=== PATIENT | female | born 1930 | race Hispanic/Latino ===

== ENCOUNTER 2018-03-07 10:51 | Emergency (ER) | payer MEDICARE ==
[2018-03-07] MEDS ORDERED: TYLENOL PO ONE (11:33)
[2018-03-07] MEDS ORDERED: XYLOCAINE 1% 20 mL INFILTRATI ONE (11:35)
[2018-03-07] MEDS ORDERED: XYLOCAINE 1%/ EPI 1:100,000 INFILTRATI ONE (11:35)
[2018-03-07] MEDS ORDERED: BOOSTRIX IM ONE (11:39)
--- NOTE | 2018-03-07 11:40 | Emergency Department Report ---
<ARELY TIM A - Last Filed: 03/07/18 13:59> ED Altered Mental Status HPI - General Chief Complaint: Fall Stated Complaint: LAC TO ARM/ FALL Time Seen by Provider: 03/07/18 11:24 - Related Data Home Medications Medication Instructions Recorded Confirmed Last Taken Glimepiride 2 mg PO DAILY 12/30/14 02/03/18 1 Day Ago ~02/02/18 Aspirin [Aspirin BABY CHEW TAB] 81 mg PO QDAY 01/27/16 02/03/18 1 Day Ago ~02/02/18 Lovastatin [Altoprev] 40 mg PO QPM 01/27/16 02/03/18 1 Day Ago ~02/02/18 Niacin (Nf) 250 mg PO QHS 01/27/16 02/03/18 1 Day Ago ~02/02/18 Omeprazole [PriLOSEC] 20 mg PO QDAY 01/27/16 02/03/18 1 Day Ago ~02/02/18 Previous Rx's Medication Instructions Recorded Last Taken Type Clopidogrel Bisulfate [Plavix] 75 mg PO DAILY #30 tablet 12/30/14 1 Day Ago Rx ~02/02/18 Acetaminophen [Acetaminophen TAB] 325 mg PO Q4H PRN #30 tablet 02/07/18 Unknown Rx Famotidine [Pepcid] 10 mg PO BID #60 tablet 02/07/18 Unknown Rx Levothyroxine [Synthroid] 25 mcg PO QAM #30 02/07/18 1 Day Ago Rx ~02/02/18 Metoprolol [Lopressor TAB] 50 mg PO BID #60 02/07/18 1 Day Ago Rx ~02/02/18 Zolpidem [Ambien] 5 mg PO QHS PRN #15 tablet 02/07/18 Unknown Rx amLODIPine [Norvasc] 5 mg PO QDAY #30 02/07/18 1 Day Ago Rx ~02/02/18 oxyCODONE /ACETAMINOPHEN [Percocet 1 tab PO Q6H PRN #5 day 02/07/18 Unknown Rx 5/325 mg] Nitrofurantoin Monohyd/M-Cryst 100 mg PO BID #14 capsule 03/07/18 Unknown Rx [Macrobid 100 mg Capsule] Allergies Allergy/AdvReac Type Severity Reaction Status Date / Time ibuprofen [From Motrin] Allergy Nausea Verified 12/28/14 11:57 ED Review of Systems ROS: Stated complaint: LAC TO ARM/ FALL Other details as noted in HPI ED Past Medical Hx - Medications Home Medications: Home Medications Medication Instructions Recorded Confirmed Last Taken Type Clopidogrel Bisulfate [Plavix] 75 mg PO DAILY #30 tablet 12/30/14 02/03/18 1 Day Ago Rx ~02/02/18 Glimepiride 2 mg PO DAILY 12/30/14 02/03/18 1 Day Ago History ~02/02/18 Aspirin [Aspirin BABY CHEW TAB] 81 mg PO QDAY 01/27/16 02/03/18 1 Day Ago History ~02/02/18 Lovastatin [Altoprev] 40 mg PO QPM 01/27/16 02/03/18 1 Day Ago History ~02/02/18 Niacin (Nf) 250 mg PO QHS 01/27/16 02/03/18 1 Day Ago History ~02/02/18 Omeprazole [PriLOSEC] 20 mg PO QDAY 01/27/16 02/03/18 1 Day Ago History ~02/02/18 Acetaminophen [Acetaminophen TAB] 325 mg PO Q4H PRN #30 tablet 02/07/18 Unknown Rx Famotidine [Pepcid] 10 mg PO BID #60 tablet 02/07/18 Unknown Rx Levothyroxine [Synthroid] 25 mcg PO QAM #30 02/07/18 02/03/18 1 Day Ago Rx ~02/02/18 Metoprolol [Lopressor TAB] 50 mg PO BID #60 02/07/18 02/03/18 1 Day Ago Rx ~02/02/18 Zolpidem [Ambien] 5 mg PO QHS PRN #15 tablet 02/07/18 Unknown Rx amLODIPine [Norvasc] 5 mg PO QDAY #30 02/07/18 02/03/18 1 Day Ago Rx ~02/02/18 oxyCODONE /ACETAMINOPHEN [Percocet 1 tab PO Q6H PRN #5 day 02/07/18 Unknown Rx 5/325 mg] Nitrofurantoin Monohyd/M-Cryst 100 mg PO BID #14 capsule 03/07/18 Unknown Rx [Macrobid 100 mg Capsule] ED Course Vital Signs 03/07/18 11:12 Temperature 99.1 F Pulse Rate 86 Respiratory 18 Rate Blood Pressure 116/37 O2 Sat by Pulse 100 Oximetry - Laceration /Wound Repair Right Posterior Distal Finger Wound Location: upper extremity Wound Length (cm): 5 Wound's Depth, Shape: superficial, linear Wound Explored: no foreign body removed Irrigated w/ Saline (ccs): 200 Betadine Prep?: Yes Anesthesia: Lidocaine w/ Epi Volume Anesthetic (ccs): 6 Wound Repaired With: sutures, Dermabond Suture Size/Type: 3:0 Number of Sutures: 8 Layer Closure?: No Sterile Dressing Applied?: Yes Progress: The 5cm laceration wound was prepped and draped in sterile fashion. Anesthesia was achieved with 6mL of 1% lidocaine with Epi. The wound was irrigated with 200cc NS and explored. There were no foreign bodies The wound was reapproximated in 1 layer with 8 sutures suing with 3-0 vicryl absorbable sutures in the dermis with interrupted sutures percutaneously. There was excellent reapproximation of the wound edges. The patient tolerated the procedure without complication. Discussed acute wound care with family members who were present, son and daughter, - Lab Data Result diagrams: 03/07/18 12:34 03/07/18 12:29 Lab Results 03/07/18 03/07/18 03/07/18 Range/Units 11:36 12:29 12:34 WBC 9.0 (4.5-11.0) K/mm3 RBC 3.07 L (3.65-5.03) M/mm3 Hgb 9.6 L (10.1-14.3) gm/dl Hct 28.0 L (30.3-42.9) % MCV 91 (79-97) fl MCH 31 (28-32) pg MCHC 34 (30-34) % RDW 14.6 (13.2-15.2) % Plt Count 292 (140-440) K/mm3 Lymph % (Auto) 20.6 (13.4-35.0) % Baxter % (Auto) 4.4 (0.0-7.3) % Eos % (Auto) 0.5 (0.0-4.3) % Baso % (Auto) 0.3 (0.0-1.8) % Lymph # 1.9 (1.2-5.4) K/mm3 Baxter # 0.4 (0.0-0.8) K/mm3 Eos # 0.0 (0.0-0.4) K/mm3 Baso # 0.0 (0.0-0.1) K/mm3 Seg Neutrophils % 74.2 H (40.0-70.0) % Seg Neutrophils # 6.7 (1.8-7.7) K/mm3 Sodium 141 (137-145) mmol/L Potassium 4.4 (3.6-5.0) mmol/L Chloride 105.9 (98-107) mmol/L Carbon Dioxide 23 (22-30) mmol/L Anion Gap 17 mmol/L BUN 21 H (7-17) mg/dL Creatinine 1.4 H (0.7-1.2) mg/dL Estimated GFR 36 ml/min BUN/Creatinine Ratio 15 % Glucose 106 H (65-100) mg/dL POC Glucose 154 H (70-105) Calcium 9.0 (8.4-10.2) mg/dL Urine Color (Yellow) Urine Turbidity (Clear) Urine pH (5.0-7.0) Ur Specific [place] (1.003-1.030) Urine Protein (Negative) mg/dL Urine Glucose (UA) (Negative) mg/dL Urine Ketones (Negative) mg/dL Urine Blood (Negative) Urine Nitrite (Negative) Urine Bilirubin (Negative) Urine Urobilinogen (<2.0) mg/dL Ur Leukocyte Esterase (Negative) Urine WBC (Auto) (0.0-6.0) /HPF Urine RBC (Auto) (0.0-6.0) /HPF U Epithel Cells (Auto) (0-13.0) /HPF /16/18 Range/Units Unknown WBC (4.5-11.0) K/mm3 RBC (3.65-5.03) M/mm3 Hgb (10.1-14.3) gm/dl Hct (30.3-42.9) % MCV (79-97) fl MCH (28-32) pg MCHC (30-34) % RDW (13.2-15.2) % Plt Count (140-440) K/mm3 Lymph % (Auto) (13.4-35.0) % Baxter % (Auto) (0.0-7.3) % Eos % (Auto) (0.0-4.3) % Baso % (Auto) (0.0-1.8) % Lymph # (1.2-5.4) K/mm3 Baxter # (0.0-0.8) K/mm3 Eos # (0.0-0.4) K/mm3 Baso # (0.0-0.1) K/mm3 Seg Neutrophils % (40.0-70.0) % Seg Neutrophils # (1.8-7.7) K/mm3 Sodium (137-145) mmol/L Potassium (3.6-5.0) mmol/L Chloride (98-107) mmol/L Carbon Dioxide (22-30) mmol/L Anion Gap mmol/L BUN (7-17) mg/dL Creatinine (0.7-1.2) mg/dL Estimated GFR ml/min BUN/Creatinine Ratio % Glucose (65-100) mg/dL POC Glucose (70-105) Calcium (8.4-10.2) mg/dL Urine Color Yellow (Yellow) Urine Turbidity Clear (Clear) Urine pH 7.0 (5.0-7.0) Ur Specific [place] 1.011 (1.003-1.030) Urine Protein 100 mg/dl (Negative) mg/dL Urine Glucose (UA) Neg (Negative) mg/dL Urine Ketones Neg (Negative) mg/dL Urine Blood Sm (Negative) Urine Nitrite Neg (Negative) Urine Bilirubin Neg (Negative) Urine Urobilinogen < 2.0 (<2.0) mg/dL Ur Leukocyte Esterase Lg (Negative) Urine WBC (Auto) 156.0 H (0.0-6.0) /HPF Urine RBC (Auto) 5.0 (0.0-6.0) /HPF U Epithel Cells (Auto) 2.0 (0-13.0) /HPF Critical care attestation.: If time is entered above; I have spent that time in minutes in the direct care of this critically ill patient, excluding procedure time. ED Disposition Clinical Impression: Hypoglycemia, Non-insulin dependent type 2 diabetes mellitus, UTI (urinary tract infection), Laceration of right hand, Chronic renal insufficiency Disposition: TO HOME OR SELFCARE Condition: Stable Instructions: Laceration (ED), Urinary Tract Infection in Women (ED), Diabetic Hypoglycemia (ED) Additional Instructions: Monitor your blood sugar the rest of the day and eat appropriately. Check glucose and restart diabetes medication tomorrow prior to eating. Follow with the doctor within 2-3 days. Take antibiotics as prescribed and return if symptoms worsen as indicated by your discharge instructions. Your stitches need to be removed in 7-10 days. You may return here or follow up with her primary care doctor. Prescriptions: Nitrofurantoin Monohyd/M-Cryst [Macrobid 100 mg Capsule] 100 mg PO BID #14 capsule Referrals: PRIMARY CARE, [Primary Care Provider] - 2-3 Days <ADOLFO LEMOS - Last Filed: 03/07/18 15:47> ED Altered Mental Status HPI - General Source: patient, family Mode of arrival: Wheelchair Limitations: Other - History of Present Illness Initial Comments: 87 year old female with a past medical history of [id number] diabetes , GERD, CAD with stent, open-heart surgery, and previous DVT presents to the hospital complaints of mental status episode likely secondary to hypoglycemia and fall with injury to right thumb. Patient takes glimepiride a.m. for her diabetes. Last dose was yesterday morning. This morning patient was found after a fall slurring her words and confused. Family presumed glucose was low and gave her juice and candy. Once patient became more oriented/alert Accu- Chek was then checked and was 100. Prior to being found confused today she fell injuring her right thumb presents with laceration. Unsure if she hit her head he has an area of blood on her left right scalp is unknown if that was caused this injury or as a result of bleeding from the hand. Patient denies headache or neck pain and only complains of 4/10 pain to the right thumb. She is right-hand dominant. Prior to this episode family reports no physical or medical complaints. Patient is currently at her baseline and alert to self and place but states the year is 2020. Last tetanus status unkowwn. ED Past Medical Hx - Past Medical History Hx Hypertension: Yes (EF 55-60%) Hx Heart Attack/AMI: Yes (2010) Hx Diabetes: Yes Hx Deep Vein Thrombosis: Yes Hx GERD: Yes Hx Renal Disease: Yes (CKD) Hx Arthritis: Yes (HANDS) Hx Seizures: No Hx Asthma: No Additional medical history: Epistaxis secondary to antiplatelet agents - Surgical History Hx Coronary Stent: Yes (2010 2014) Hx Open Heart Surgery: Yes - Social History Smoking Status: Never Smoker Substance Use Type: None ED Physical Exam - General Limitations: Other - Other Other exam information: General: No limitations, patient is alert in no acute distress Head exam: Atraumatic, normocephalic Eyes exam: Normal appearance, pupils equal reactive to light, extraocular movements intact ENT: Moist mucous membrane, normal oropharynx Neck exam: Normal inspection, full range of motion, no meningismus nontender Respiratory exam: Clear to auscultation bilateral, no wheezes, rales, crackles Cardiovascular: Normal rate and rhythm, normal heart sounds Abdomen: Soft, nondistended, and nontender, with normal bowel sounds, no rebound, or guarding Extremity: Full range of motion. laceration of the dorsum right hand at the base of the thumb extending to the webspace approximately 5 cm. Back: Normal Inspection, full range of motion, no tenderness Neurologic: Alert, oriented x3, cranial nerves intact, no motor or sensory deficit Psychiatric: normal affect, normal mood Skin: Warm, dry, intact - Assessment Assessment Interval: Baseline - Level of Consciousness 1a. Level of Consciousness: alert - LOC Questions 1b. LOC Questions: answers correctly - LOC Command 1c. LOC Commands: performs tasks correctly - Best Gaze 2. Best Gaze: normal - Visual 3. Visual: no visual loss - Facial Palsy 4. Facial Palsy: normal symmetrical movement - Motor Arm 5b. Motor Arm Right: no drift 5a. Motor Arm Left: no drift - Motor Leg 6a. Motor Leg Left: no drift 6b. Motor Leg Right: no drift - Limb Ataxia 7. Limb Ataxia: absent - Sensory 8. Sensory: normal - Best Language 9. Best Language: no aphasia - Dysarthria 10. Dysarthria: normal - Extinction and Inattention 11. Extinction/Inattention: no abnormality - Scoring Total Score: 0 Stroke Severity: No Stroke Symptoms - Lab Data Result diagrams: 03/07/18 12:34 03/07/18 12:29 - Radiology Data Radiology results: report reviewed read by radiologist ct head: naf xr right hand: naf - Medical Decision Making Hypoglycemic episode Improved with oral intake prior to arrival Glucose stable and patient ate prior to discharge UTI Likely cause of hypoglycemic episode No signs of sepsis macrobid given and prescribed cultures pending Renal insufficiency Chronic and unchanged Anemia No reports of bleeding other than acute bleeding wound pt received tetanus - Differential Diagnosis infection, hypoglycemia, fracture, contusion, sprain Critical Care Time: No ED Disposition Is pt being admited?: No Does the pt Need Aspirin: No Time of Disposition: 15:37
--- NOTE | 2018-03-07 12:24 | Cat Scan Report ---
FINAL REPORT EXAM: CT HEAD/BRAIN WO CON HISTORY: ams, likley hypoglycemia ? head injury TECHNIQUE: CT examination of the head without IV contrast PRIORS: None. FINDINGS: No acute air-fluid level visualized in the included air-filled sinuses. Bone windows demonstrate no acute fracture. There is ventricular and sulcal prominence compatible with global cerebrocortical atrophy. The brain contains no mass, mass effect, hemorrhage, or acute infarct. There is no extra-axial intracranial bleed, brain bleed, or midline shift. IMPRESSION: No acute CVA, intracranial bleed, or brain mass
[2018-03-07 12:40] LABS: Basophils % (Auto) 0.3 % (0.0-1.8); Eosinophils % (Auto) 0.5 % (0.0-4.3); Hemoglobin 9.6 gm/dl (10.1-14.3); Lymphocytes # (Auto) 1.9 K/mm3 (1.2-5.4); Lymphocytes % (Auto) 20.6 % (13.4-35.0); Mean Corpuscular HGB Conc 34 % (30-34); Mean Corpuscular Hemoglobin 31 pg (28-32); Mean Corpuscular Volume 91 fl (79-97); Monocytes # (Auto) 0.4 K/mm3 (0.0-0.8); Monocytes % (Auto) 4.4 % (0.0-7.3); Platelet Count 292 K/mm3 (140-440); Red Blood Count 3.07 M/mm3 (3.65-5.03); Red Cell Distribution Width 14.6 % (13.2-15.2)
--- NOTE | 2018-03-07 12:56 | XRay Report ---
Right hand 3 views: History: Injury, this laceration. Findings: General osteopenia. No periosteal reaction or lytic lesion. No soft tissue calcification. Arthritic changes interphalangeal joints. Impression: No evidence of acute fracture.
[2018-03-07 14:51] LABS: Bilirubin,Urine NEG (Negative); Blood,Urine SM (Negative); Color,Urine Yellow (Yellow); Urobilinogen,Urine < 2.0 mg/dL (<2.0)
[2018-03-07] MEDS ORDERED: MACROBID ONE (15:16)
[2018-03-07] MEDS ORDERED: MACROBID PO ONE (15:17)
[2018-03-07 16:09] VITALS: BP 128/37
== END 2018-03-07 16:10 | disposition home or self-care (01) ==
LOC: ED 10:51
DX: S61.411A Laceration without foreign body of right hand, initial encounter (principal); E11.649 Type 2 diabetes mellitus with hypoglycemia without coma; N39.0 Urinary tract infection, site not specified; I13.0 Hypertensive heart and chronic kidney disease with heart failure and stage 1 through stage 4 chronic kidney disease, or unspecified chronic kidney disease; E11.22 Type 2 diabetes mellitus with diabetic chronic kidney disease; N18.9 Chronic kidney disease, unspecified; K21.9 Gastro-esophageal reflux disease without esophagitis; Z86.718 Personal history of other venous thrombosis and embolism; Z79.82 Long term (current) use of aspirin; W17.89XA Other fall from one level to another, initial encounter; Y93.89 Activity, other specified; Y92.89 Other specified places as the place of occurrence of the external cause; Y99.8 Other external cause status
CPT/HCPCS: 36415; 70450; 80048; 81001; 82962; 85025; 87086; 90471; 90715

== ENCOUNTER 2018-03-15 09:59 | Outpatient (CLI) | payer MEDICARE ==
--- NOTE | 2018-03-16 01:47 | XRay Report ---
FINAL REPORT EXAM: XR HIP 2-3V RT HISTORY: PAIN IN RIGHT HIP TECHNIQUE: An AP view of the pelvis was obtained along with a frogleg view of the right hip. Comparison is made to the postoperative study of 02/06/2018. FINDINGS: The patient is status post total right hip arthroplasty. There is no evidence of heart complication or fracture. There is generalized osteoporosis. The bony pelvic ring appears intact the left hip joint reveals minimal arthritic changes. The SI joints appear normal. The soft tissues reveal vascular calcifications along with surgical clips in the right inguinal area. IMPRESSION: Status post total right hip arthroplasty. No evidence of hardware complication or fracture.
== END 2018-03-15 10:00 | disposition home or self-care (01) ==
LOC: XRAY 09:59
PROVIDERS: ATTEND Orthopaedic Surgery
DX: M81.0 Age-related osteoporosis without current pathological fracture (principal); M25.851 Other specified joint disorders, right hip; Z96.641 Presence of right artificial hip joint; I11.0 Hypertensive heart disease with heart failure; I50.9 Heart failure, unspecified; E78.00 Pure hypercholesterolemia, unspecified; K21.9 Gastro-esophageal reflux disease without esophagitis; E03.9 Hypothyroidism, unspecified; E11.9 Type 2 diabetes mellitus without complications; E78.5 Hyperlipidemia, unspecified

== ENCOUNTER 2020-06-26 16:04 | Emergency (ER) | payer MEDICARE ==
[2020-06-26] MEDS ORDERED: MORPHINE 2 MG/1 ML INJ IV ONE ×2 (16:27→22:50)
[2020-06-26 16:46] LABS: Basophils # (Auto) 0.1 K/mm3 (0.0-0.1); Basophils % (Auto) 0.5 % (0.0-1.8); Eosinophils % (Auto) 0.5 % (0.0-4.3); Hematocrit 26.5 % (30.3-42.9); Hemoglobin 8.7 gm/dl (10.1-14.3); Lymphocytes # (Auto) 2.9 K/mm3 (1.2-5.4); Lymphocytes % (Auto) 30.5 % (13.4-35.0); Mean Corpuscular HGB Conc 33 % (30-34); Mean Corpuscular Volume 97 fl (79-97); Monocytes # (Auto) 0.4 K/mm3 (0.0-0.8); Monocytes % (Auto) 4.6 % (0.0-7.3); Platelet Count 288 K/mm3 (140-440); Red Blood Count 2.74 M/mm3 (3.65-5.03); Red Cell Distribution Width 15.7 % (13.2-15.2)
--- NOTE | 2020-06-26 16:54 | Emergency Department Report ---
ED Fall HPI - General Chief Complaint: Fall Stated Complaint: R HIP PAIN Time Seen by Provider: 06/26/20 16:14 Source: patient, EMS Mode of arrival: Stretcher - History of Present Illness Initial Comments: Patient is a 89-year-old female who has history of htn, cad s/p cabg, hypothyroidism, ckd 3, oa, dvt and gerd who presented with mechanical fall resulting in right hip pain. Patient states she also struck the back of her head and has a mild headache. She denies loss of consciousness. Patient has a history of total hip arthroplasty in 2018. Patient is having pain with movement of the right hip. She denies any other injuries at this time. - Related Data Home Medications Medication Instructions Recorded Confirmed Last Taken Glimepiride 2 mg PO DAILY 12/30/14 02/03/18 1 Day Ago ~02/02/18 Aspirin [Aspirin BABY CHEW TAB] 81 mg PO QDAY 01/27/16 02/03/18 1 Day Ago ~02/02/18 Lovastatin [Altoprev] 40 mg PO QPM 01/27/16 02/03/18 1 Day Ago ~02/02/18 Niacin (Nf) 250 mg PO QHS 01/27/16 02/03/18 1 Day Ago ~02/02/18 Omeprazole [PriLOSEC] 20 mg PO QDAY 01/27/16 02/03/18 1 Day Ago ~02/02/18 Previous Rx's Medication Instructions Recorded Last Taken Type Clopidogrel Bisulfate [Plavix] 75 mg PO DAILY #30 tablet 12/30/14 1 Day Ago Rx ~02/02/18 Acetaminophen [Acetaminophen TAB] 325 mg PO Q4H PRN #30 tablet 02/07/18 Unknown Rx Famotidine [Pepcid] 10 mg PO BID #60 tablet 02/07/18 Unknown Rx Levothyroxine [Synthroid] 25 mcg PO QAM #30 02/07/18 1 Day Ago Rx ~02/02/18 Metoprolol [Lopressor TAB] 50 mg PO BID #60 02/07/18 1 Day Ago Rx ~02/02/18 Zolpidem [Ambien] 5 mg PO QHS PRN #15 tablet 02/07/18 Unknown Rx amLODIPine 5 mg PO QDAY #30 02/07/18 1 Day Ago Rx ~02/02/18 oxyCODONE /ACETAMINOPHEN [Percocet 1 tab PO Q6H PRN #5 day 02/07/18 Unknown Rx 5/325 mg] Nitrofurantoin Monohyd/M-Cryst 100 mg PO BID #14 capsule 03/07/18 Unknown Rx [Macrobid 100 mg Capsule] Allergies Allergy/AdvReac Type Severity Reaction Status Date / Time ibuprofen [From Motrin] Allergy Nausea Verified 12/28/14 11:57 ED Review of Systems ROS: Stated complaint: R HIP PAIN Other details as noted in HPI Comment: All other systems reviewed and negative ED Past Medical Hx - Past Medical History Previous Medical History?: Yes Hx Hypertension: Yes (EF 55-60%) Hx Heart Attack/AMI: Yes (2010) Hx Diabetes: Yes Hx Deep Vein Thrombosis: Yes Hx GERD: Yes Hx Renal Disease: Yes (CKD) Hx Arthritis: Yes () Hx Seizures: No Hx Asthma: No Additional medical history: Epistaxis secondary to antiplatelet agents - Surgical History Past Surgical History?: Yes Hx Coronary Stent: Yes (2010 2014) Hx Open Heart Surgery: Yes Additional Surgical History: right hip surgery - Social History Smoking Status: Never Smoker Substance Use Type: None - Medications Home Medications: Home Medications Medication Instructions Recorded Confirmed Last Taken Type Clopidogrel Bisulfate [Plavix] 75 mg PO DAILY #30 tablet 12/30/14 02/03/18 1 Day Ago Rx ~02/02/18 Glimepiride 2 mg PO DAILY 12/30/14 02/03/18 1 Day Ago History ~02/02/18 Aspirin [Aspirin BABY CHEW TAB] 81 mg PO QDAY 01/27/16 02/03/18 1 Day Ago History ~02/02/18 Lovastatin [Altoprev] 40 mg PO QPM 01/27/16 02/03/18 1 Day Ago History ~02/02/18 Niacin (Nf) 250 mg PO QHS 01/27/16 02/03/18 1 Day Ago History ~02/02/18 Omeprazole [PriLOSEC] 20 mg PO QDAY 01/27/16 02/03/18 1 Day Ago History ~02/02/18 Acetaminophen [Acetaminophen TAB] 325 mg PO Q4H PRN #30 tablet 02/07/18 Unknown Rx Famotidine [Pepcid] 10 mg PO BID #60 tablet 02/07/18 Unknown Rx Levothyroxine [Synthroid] 25 mcg PO QAM #30 02/07/18 02/03/18 1 Day Ago Rx ~02/02/18 Metoprolol [Lopressor TAB] 50 mg PO BID #60 02/07/18 02/03/18 1 Day Ago Rx ~02/02/18 Zolpidem [Ambien] 5 mg PO QHS PRN #15 tablet 02/07/18 Unknown Rx amLODIPine 5 mg PO QDAY #30 02/07/18 02/03/18 1 Day Ago Rx ~02/02/18 oxyCODONE /ACETAMINOPHEN [Percocet 1 tab PO Q6H PRN #5 day 02/07/18 Unknown Rx 5/325 mg] Nitrofurantoin Monohyd/M-Cryst 100 mg PO BID #14 capsule 03/07/18 Unknown Rx [Macrobid 100 mg Capsule] ED Physical Exam - General Limitations: No Limitations General appearance: alert, in no apparent distress - Head Head exam: Present: atraumatic, normocephalic - Eye Eye exam: Present: normal appearance, PERRL, EOMI - ENT ENT exam: Present: normal orophraynx, mucous membranes moist - Neck Neck exam: Present: normal inspection - Respiratory Respiratory exam: Present: normal lung sounds bilaterally. Absent: respiratory distress, wheezes, rales - Cardiovascular Cardiovascular Exam: Present: regular rate, normal rhythm, normal heart sounds. Absent: systolic murmur, diastolic murmur, rubs, gallop - GI/Abdominal GI/Abdominal exam: Present: soft, normal bowel sounds. Absent: distended, tenderness, guarding, rebound, rigid - Extremities Exam Extremities exam: Present: normal inspection - Expanded Lower Extremity Exam Right Hip exam: Present: tenderness. Absent: external rotation, internal rotation, shortening Upper Leg exam: Present: normal inspection Knee exam: Present: normal inspection Lower Leg exam: Present: normal inspection Neuro vascular tendon exam: Present: no vascular compromise - Back Exam Back exam: Present: normal inspection - Neurological Exam Neurological exam: Present: alert, oriented X3 - Psychiatric Psychiatric exam: Present: normal affect, normal mood - Skin Skin exam: Present: warm, dry, intact, normal color. Absent: rash ED Course Vital Signs 06/26/20 16:22 Temperature 98.9 F Pulse Rate 67 Respiratory 20 Rate Blood Pressure 149/48 [Right] O2 Sat by Pulse 97 Oximetry ED Medical Decision Making - Lab Data Result diagrams: 06/26/20 16:32 06/26/20 16:32 - Radiology Data CT cervical spine wo con INDICATION / CLINICAL INFORMATION: 89 years Female; pain from injury. TECHNIQUE: Axial CT images of the cervical spine were obtained. Sagittal and coronal reformatted images were produced. All CT scans at this location are performed using CT dose reduction for ALARA by means of automated exposure control. COMPARISON: None available. FINDINGS: POST-SURGICAL CHANGES: Anterior fusion hardware seen from C5 through C7. Interbody strut graft is seen at C6. ALIGNMENT: Normal cervical lordosis seen without significant scoliosis. VERTEBRAE: No signs of fracture. Vertebral bodies are grossly normal in height throughout. There is osseous foraminal narrowing on the right at C3-4 and C4-5 from uncinate and facet hypertrophy. Significant findings are seen on the left at C3-4 and C4-5, as well is C2-3. INTRAVERTEBRAL DISCS: Small posterocentral disc protrusion seen at C4-5. Mild disc disease and posterior ligamentum flavum hypertrophy seen at C3-4. Overall, no significant canal stenosis is appreciated. PARASPINAL SOFT TISSUES: No significant abnormality. ADDITIONAL FINDINGS: Scarring type changes seen in the lung apices. Atherosclerotic disease is seen in the carotid bifurcation region on the left. IMPRESSION: 1. No signs of acute bony trauma to the cervical spine. Signer Name: Hugo Griffin MD, III Signed: 06/26/2020 5:40 PM Workstation Name: [id number] CT head/brain wo con INDICATION / CLINICAL INFORMATION: 89 years Female; fall injury. TECHNIQUE: Routine CT head without contrast. All CT scans at this location are performed using CT dose reduction for ALARA by means of automated exposure control. COMPARISON: 03/07/2018 FINDINGS: BRAIN / INTRACRANIAL CONTENTS: No acute hemorrhage, mass effect, midline shift, hydrocephalus, or acute, large territorial infarct. Mild to moderate, diffuse cerebral and cerebellar atrophy. Moderate degree of hippocampal atrophy suggested bilaterally. There are [id number], confluent areas of decreased attenuation in the white matter of the cerebral hemispheres. These are nonspecific findings and may be related to microangiopathy (hypertension, diabetes, atherosclerosis), given the patient's age. It might be difficult to evaluate for small areas of ischemia without diffusion imaging by MRI. CRANIOCERVICAL JUNCTION: No significant abnormality. ORBITS: No significant abnormality of visualized orbits. SINUSES / MASTOIDS: No significant abnormality in the visualized paranasal sinuses or mastoid air cells. ADDITIONAL FINDINGS: Atherosclerotic disease is seen in the anterior and posterior circulation. IMPRESSION: 1. No focal mass, hemorrhage, hydrocephalus, or acute, large territorial infarct. Signer Name: Hugo Griffin MD, III Signed: 06/26/2020 5:36 PM Workstation Name: [id number] lower extremity RT wo con INDICATION: fall injury, hip injury. TECHNIQUE: All CT scans at this location are performed using the following dose modulation technique: Automated exposure control. COMPARISON: None available. FINDINGS: Diffuse, subjective osteopenia is noted. There is mild artifact related to the right hip arthroplasty. There are minimally displaced fractures through the right pubic rami. Incompletely evaluated on this exam, there appears to be a nondisplaced fracture through the inferior right hemisacrum. There is subtle cortical irregularity at the medial wall of the anterior right acetabulum which may be due to minimally displaced fracture (axial series 2 image 47). This may be artifact. Extraperitoneal hematoma is seen within the right hemipelvis. No definite proximal right thigh hematoma is seen. IMPRESSION: 1. Limited study due to artifact from the right hip arthroplasty. 2. Minimally displaced right pubic ramus fractures and, incompletely evaluated on this exam, right sacral fracture. 3. Subtle lucency in the medial wall of the right acetabulum may be artifact related to the arthroplasty, I cannot exclude a nondisplaced fracture here. 4. Extraperitoneal hematoma in the right hemipelvis. 5. Diffuse, subjective osteopenia. Signer Name: Erwin Lovell MD Signed: 06/26/2020 5:27 PM Workstation Name: [id number] CT ABDOMEN AND PELVIS WITHOUT CONTRAST INDICATION / CLINICAL INFORMATION: trauma, pelvic hematoma. TECHNIQUE: Axial CT images were obtained through the abdomen and pelvis without IV contrast. All CT scans at this location are performed using CT dose reduction for ALARA by means of automated exposure control. COMPARISON: CT right lower extremity from earlier today. FINDINGS: LOWER CHEST: Trace left pleural effusion. LIVER: No significant abnormality. GALLBLADDER: No significant abnormality. BILE DUCTS: No significant abnormality. PANCREAS: No significant abnormality. SPLEEN: No significant abnormality. ADRENALS: No significant abnormality. RIGHT KIDNEY / URETER: Severe hydroureteronephrosis without obstructing stone or lesion. LEFT KIDNEY / URETER: Severe hydroureteronephrosis without obstructing stone or lesion. STOMACH / SMALL BOWEL: No significant abnormality. COLON: No significant abnormality. APPENDIX: No significant abnormality. PERITONEUM: There is a stable right pelvic extraperitoneal hematoma measuring approximately 3.2 x 2.4 x 3.2 cm. This is unchanged when compared to the study from 2 hours earlier. No definite right thigh hematoma is identified. No free air. No fluid collection. LYMPH NODES: No significant adenopathy. AORTA / ARTERIES: Moderate atherosclerotic calcification without acute abn ormality. IVC / VEINS: No significant abnormality. URINARY BLADDER: Distention of the urinary bladder with trabecular thickening compatible with chronic bladder outlet obstruction. REPRODUCTIVE ORGANS: No significant abnormality. ADDITIONAL FINDINGS: None. SKELETAL SYSTEM: Recent menstruation a minimally displaced right pubic ramus and sacral fractures. Right total hip arthroplasty. IMPRESSION: 1. Stable right pelvic extraperitoneal hematoma compared to the CT scan from 2 hours earlier. No definite right thigh hematoma is seen. 2. Urinary bladder distention with severe bilateral hydroureteronephrosis. Findings are likely on the basis of chronic outlet obstruction, as no obstructing mass or stone is seen. 3. Redemonstration of minimally displaced right pubic ramus and sacral fractures as described in the prior CT right lower extremity. 4. Trace left pleural effusion. Signer Name: Lamont Mendez MD Signed: 06/26/2020 7:37 PM Workstation Name: [id number] - Medical Decision Making Patient is a 89-year-old female suffered a fall prior to arrival. Patient is having a great deal of pain in the right hip. Patient has multiple fractures in the right pelvis. This does include a probable acetabular fracture. Patient to be transferred to [facility]. We do not have trauma or Ortho coverage at this time. Patient given IV fluids for some mild dehydration. Patient will be transferred in stable condition. Critical care attestation.: If time is entered above; I have spent that time in minutes in the direct care of this critically ill patient, excluding procedure time. ED Disposition Clinical Impression: Dehydration Closed head injury Qualifiers: Encounter type: initial encounter Qualified Code(s): S09.90XA - Unspecified injury of head, initial encounter Pubic ramus fracture Qualifiers: Encounter type: initial encounter Fracture type: closed Laterality: right Qualified Code(s): S32.591A - Other specified fracture of right pubis, initial encounter for closed fracture Sacral fracture Qualifiers: Encounter type: initial encounter Zone of sacrum fracture: unspecified portion of sacrum Fracture type: closed Qualified Code(s): S32.10XA - Unspecified fracture of sacrum, initial encounter for closed fracture Acetabular fracture Qualifiers: Encounter type: initial encounter Sublocation of acetabulum: medial wall Fracture type: closed Fracture alignment: nondisplaced Laterality: right Qualified Code(s): S32.474A - Nondisplaced fracture of medial wall of right acetabulum, initial encounter for closed fracture Disposition: DC/TX-70 ANOTHER TYPE HLTHCARE Is pt being admited?: No Does the pt Need Aspirin: No Condition: Stable Time of Disposition: 20:24
[2020-06-26 17:04] LABS: Calcium 8.8 mg/dL (8.4-10.2)
[2020-06-26] MEDS ORDERED: SODIUM CHLORIDE 0.9% 500 ML 500 ML IV ONE (17:19)
--- NOTE | 2020-06-26 17:32 | Cat Scan Report ---
CT lower extremity RT wo con INDICATION: fall injury, hip injury. TECHNIQUE: All CT scans at this location are performed using the following dose modulation technique: Automated exposure control. COMPARISON: None available. FINDINGS: Diffuse, subjective osteopenia is noted. There is mild artifact related to the right hip arthroplasty. There are minimally displaced fractures through the right pubic rami. Incompletely evaluated on this exam, there appears to be a nondisplaced fracture through the inferior right hemisacrum. There is sub tle cortical irregularity at the medial wall of the anterior right acetabulum which may be due to min imally displaced fracture (axial series 2 image 47). This may be artifact. Extraperitoneal hematoma is seen within the right hemipelvis. No definite proximal right thigh hemato ma is seen. IMPRESSION: 1. Limited study due to artifact from the right hip arthroplasty. 2. Minimally displaced right pubic ramus fractures and, incompletely evaluated on this exam, right sa cral fracture. 3. Subtle lucency in the medial wall of the right acetabulum may be artifact related to the arthropla sty, I cannot exclude a nondisplaced fracture here. 4. Extraperitoneal hematoma in the right hemipelvis. 5. Diffuse, subjective osteopenia. Signer Name: Erwin Lovell MD Signed: 06/26/2020 5:27 PM Workstation Name: [email or web address]
--- NOTE | 2020-06-26 17:41 | Cat Scan Report ---
CT head/brain wo con INDICATION / CLINICAL INFORMATION: 89 years Female; fall injury. TECHNIQUE: Routine CT head without contrast. All CT scans at this location are performed using CT dos e reduction for ALARA by means of automated exposure control. COMPARISON: 03/07/2018 FINDINGS: BRAIN / INTRACRANIAL CONTENTS: No acute hemorrhage, mass effect, midline shift, hydrocephalus, or acu te, large territorial infarct. Mild to moderate, diffuse cerebral and cerebellar atrophy. Moderate degree of hippocampal atrophy sug gested bilaterally. There are [id number], confluent areas of decreased attenuation in the white matter of the cereb ral hemispheres. These are nonspecific findings and may be related to microangiopathy (hypertension, diabetes, atherosclerosis), given the patient's age. It might be difficult to evaluate for small area s of ischemia without diffusion imaging by MRI. CRANIOCERVICAL JUNCTION: No significant abnormality. ORBITS: No significant abnormality of visualized orbits. SINUSES / MASTOIDS: No significant abnormality in the visualized paranasal sinuses or mastoid air keturah ls. ADDITIONAL FINDINGS: Atherosclerotic disease is seen in the anterior and posterior circulation. IMPRESSION: 1. No focal mass, hemorrhage, hydrocephalus, or acute, large territorial infarct. Signer Name: Hugo Griffin MD, III Signed: 06/26/2020 5:36 PM Workstation Name: [email or web address]
--- NOTE | 2020-06-26 17:44 | Cat Scan Report ---
CT cervical spine wo con INDICATION / CLINICAL INFORMATION: 89 years Female; pain from injury. TECHNIQUE: Axial CT images of the cervical spine were obtained. Sagittal and coronal reformatted images were pr oduced. All CT scans at this location are performed using CT dose reduction for ALARA by means of aut omated exposure control. COMPARISON: None available. FINDINGS: POST-SURGICAL CHANGES: Anterior fusion hardware seen from C5 through C7. Interbody strut graft is see n at C6. ALIGNMENT: Normal cervical lordosis seen without significant scoliosis. VERTEBRAE: No signs of fracture. Vertebral bodies are grossly normal in height throughout. There is osseous foraminal narrowing on the right at C3-4 and C4-5 from uncinate and facet hypertroph y. Significant findings are seen on the left at C3-4 and C4-5, as well is C2-3. INTRAVERTEBRAL DISCS: Small posterocentral disc protrusion seen at C4-5. Mild disc disease and production inspector ior ligamentum flavum hypertrophy seen at C3-4. Overall, no significant canal stenosis is appreciated . PARASPINAL SOFT TISSUES: No significant abnormality. ADDITIONAL FINDINGS: Scarring type changes seen in the lung apices. Atherosclerotic disease is seen in the carotid bifurcation region on the left. IMPRESSION: 1. No signs of acute bony trauma to the cervical spine. Signer Name: Hugo Griffin MD, III Signed: 06/26/2020 5:40 PM Workstation Name: [id number]
--- NOTE | 2020-06-26 19:42 | Cat Scan Report ---
CT ABDOMEN AND PELVIS WITHOUT CONTRAST INDICATION / CLINICAL INFORMATION: trauma, pelvic hematoma. TECHNIQUE: Axial CT images were obtained through the abdomen and pelvis without IV contrast. All CT scans at [facility] are performed using CT dose reduction for ALARA by means of automated exposure control. COMPARISON: CT right lower extremity from earlier today. FINDINGS: LOWER CHEST: Trace left pleural effusion. LIVER: No significant abnormality. GALLBLADDER: No significant abnormality. BILE DUCTS: No significant abnormality. PANCREAS: No significant abnormality. SPLEEN: No significant abnormality. ADRENALS: No significant abnormality. RIGHT KIDNEY / URETER: Severe hydroureteronephrosis without obstructing stone or lesion. LEFT KIDNEY / URETER: Severe hydroureteronephrosis without obstructing stone or lesion. STOMACH / SMALL BOWEL: No significant abnormality. COLON: No significant abnormality. APPENDIX: No significant abnormality. PERITONEUM: There is a stable right pelvic extraperitoneal hematoma measuring approximately 3.2 x 2.4 x 3.2 cm. This is unchanged when compared to the study from 2 hours earlier. No definite right thigh hematoma is identified. No free air. No fluid collection. LYMPH NODES: No significant adenopathy. AORTA / ARTERIES: Moderate atherosclerotic calcification without acute abnormality. IVC / VEINS: No significant abnormality. URINARY BLADDER: Distention of the urinary bladder with trabecular thickening compatible with chronic bladder outlet obstruction. REPRODUCTIVE ORGANS: No significant abnormality. ADDITIONAL FINDINGS: None. SKELETAL SYSTEM: Recent menstruation a minimally displaced right pubic ramus and sacral fractures. Ri ght total hip arthroplasty. IMPRESSION: 1. Stable right pelvic extraperitoneal hematoma compared to the CT scan from 2 hours earlier. No defi nite right thigh hematoma is seen. 2. Urinary bladder distention with severe bilateral hydroureteronephrosis. Findings are likely on the basis of chronic outlet obstruction, as no obstructing mass or stone is seen. 3. Redemonstration of minimally displaced right pubic ramus and sacral fractures as described in the prior CT right lower extremity. 4. Trace left pleural effusion. Signer Name: Lamont Mendez MD Signed: 06/26/2020 7:37 PM Workstation Name: [id number]
[2020-06-26 22:29] VITALS: BP 137/44
[2020-06-26] MEDS ORDERED: MORPHINE 2 MG/1 ML INJ ONE (22:51)
== END 2020-06-26 22:55 | disposition other institution (70) ==
LOC: ED 16:04
DX: S32.401A Unspecified fracture of right acetabulum, initial encounter for closed fracture (principal); S32.501A Unspecified fracture of right pubis, initial encounter for closed fracture; S32.10XA Unspecified fracture of sacrum, initial encounter for closed fracture; S09.90XA Unspecified injury of head, initial encounter; E86.0 Dehydration; I25.2 Old myocardial infarction; I10 Essential (primary) hypertension; E11.9 Type 2 diabetes mellitus without complications; K21.9 Gastro-esophageal reflux disease without esophagitis; M19.91 Primary osteoarthritis, unspecified site; Z86.718 Personal history of other venous thrombosis and embolism; Z98.890 Other specified postprocedural states; Z79.899 Other long term (current) drug therapy; Z88.8 Allergy status to other drugs, medicaments and biological substances; W19.XXXA Unspecified fall, initial encounter; Y93.89 Activity, other specified; Y92.89 Other specified places as the place of occurrence of the external cause; Y99.8 Other external cause status
CPT/HCPCS: 36415; 70450; 72125; 73700; 74176; 80048; 85025; 96374; 99285; J2270; J7040